=== PATIENT | male | born 1950 | race Caucasian/White ===

== ENCOUNTER → 2023-09-04 06:57 | Outpatient (REF) | payer MEDICARE, OTHER, SELFPAY | LOC: HWRAD 06:57 | PROVIDERS: ATTENDING PHYSICIAN Family Medicine | DX: R05.3 Chronic cough (principal) | CPT/HCPCS: 71046 ==

== ENCOUNTER 2024-11-06 19:49 | Emergency (ER) | payer MEDICARE, OTHER, SELFPAY ==
[2024-11-06 19:50] VITALS: BMI 26.1
[2024-11-06 19:54] VITALS: BP 177/93
[2024-11-06 20:16] LABS: Hematocrit 32.4 % (39.0-52.0); Hemoglobin 10.0 g/dL (13.0-18.0); Mean Corp Hgb Conc. 30.9 g/dL (33.0-37.0); Mean Corpuscular Volume 77.9 fL (80.0-94.0); Nucleated Red Blood Cells % 0 % (-); Platelet Count 685 10^3/uL (130-400); Red Cell Dist. Width 17.6 % (11.5-14.5)
[2024-11-06 20:31] LABS: ALT (SGPT) 20 U/L (0-50); AST (SGOT) 21 U/L (17-59); Albumin 4.0 g/dl (3.5-5.0); Alkaline Phosphatase 51 U/L (38-126); Blood Urea Nitrogen 19 mg/dl (9-20); Calcium 9.5 mg/dl (8.4-10.2); Carbon Dioxide 26 mmol/L (22-30); Chloride 102 mmol/L (98-107); Glucose 109 mg/dl (70-99); Lipase 117 U/L (23-300); Potassium 4.6 mmol/L (3.5-5.1); Sodium 134 mmol/L (135-145); Total Protein 7.1 g/dl (6.3-8.2); eGFR > 60.00
[2024-11-06 22:14] VITALS: BP 148/92
[2024-11-06 23:00] VITALS: BP 149/89
[2024-11-07] VITALS: BP 156/85
[2024-11-07 00:12] LABS: COVID-19 Antigen Negative (Negative)
[2024-11-07 01:00] VITALS: BP 151/89
--- NOTE | 2024-11-07 01:17 | ED.GENMED ---
History of Present Illness
General
Chief Complaint: Dehydration Symptoms
Source: patient and spouse
Exam Limitations: none
Time Seen by Provider: 11/06/24 22:08
Nursing documentation reviewed up to this point in time: agreed with
History of Present Illness
History of Present Illness:
Note:
CHIEF COMPLAINT(S)
Dehydration, history of diverticulitis, and recent infection.
HISTORY OF PRESENT ILLNESS
The patient is a 74-year-old male with a past medical history of diverticulitis, who presents with symptoms of dehydration and a recent history of infections. Approximately three weeks ago, the patient experienced a diverticulitis attack, the first
in 15 years, and was treated with a regimen of antibiotics. Subsequently, the patient developed a chest and sinus infection, for which another course of antibiotics was prescribed, despite the condition being more viral than bacterial. The patient
reported feeling feverish and achy but did not record an elevated temperature. He described feeling unmotivated and highly stressed over the past three weeks and has not been consuming water at his usual rate. The patient visited an urgent care
center where they performed a chest x-ray and cardiac examination, which were both unremarkable. The patient was informed that he was dehydrated but no blood work was performed at that time. The patient also noted his blood pressure was measured at
164, higher than his usual range of 135 to 138 over 80 to 85. He had his first substantial meal in a week and a half the night before and noticed feeling somewhat better following this. He reports his usual bowel habits have changed, with some
difficulty passing stool, although he does not describe significant pain. The patient manages bowel regularity with psyllium (Metamucil) but is currently taking it at a reduced dose. Recent laboratory results will be reviewed, and hydration therapy
will be initiated. The patient denies any recent darkening of urine and fever after taking home temperature measurements.
SOCIAL DETERMINANTS AFFECTING HEALTH
The patient has been experiencing significant stress over the past three weeks, which may be contributing to his current health issues.
PHYSICAL EXAM
General: Alert, no acute distress.
Skin: Warm, dry.
Head: Normocephalic, atraumatic.
Neck: Supple, trachea midline.
Eyes, Ears, Nose, Mouth, and Throat: Oral mucosa moist.
Cardiovascular: Normal peripheral perfusion, no edema.
Respiratory: Respirations are non-labored.
Gastrointestinal: Abdomen nondistended.
Back: Normal range of motion, normal alignment.
Musculoskeletal: Normal range of motion, normal strength.
Neurological: Alert and oriented to person, place, time, and situation, no focal neurological deficit observed.
Psychiatric: Cooperative, appropriate mood & affect.
PLAN
1. Initiate intravenous hydration to address dehydration.
2. Review recent laboratory results to guide further management.
3. Obtain a urine sample for further analysis.
DIFFERENTIAL DIAGNOSIS
The Differential Diagnosis includes, in no particular order and is not limited to:
1. Recurrent diverticulitis
2. Upper respiratory tract infection
3. Viral infection
4. Bacterial sinusitis
5. Dehydration
6. Electrolyte imbalance
7. Stress-induced physiological changes
8. Gastrointestinal malabsorption or upset
9. Medication side effects
10. Hypertension
Disposition:
SUMMARY OF ENCOUNTER
The patient is a 74-year-old male who presented with concerns of dehydration and symptoms indicative of an upper respiratory infection (URI). After consuming three cans of indra deyanira during his emergency department visit, the patient reported
feeling significantly better. Laboratory tests reviewed did not confirm dehydration but did reveal slight anemia, with no baseline labs for comparison. The patient mentioned a history of iron-deficiency anemia managed with iron supplements, which he
discontinued fearing iron accumulation. He reported recent steroid use, accounting for a white blood cell count of 16,000. The patient does not currently have a family physician and expressed plans to seek a new primary physician. He was provided
with the pulse line for assistance and advised to follow up with hematology. Despite symptoms of a URI, the patient noted improvement after recent antibiotic and steroid treatment. He also began taking Mucinex D today.
DISPOSITION
Discharge in improved condition with fatigue.
ASSESSMENT
The patient exhibits symptoms of a possible upper respiratory infection (URI), slight anemia, with a history suggesting iron-deficiency anemia, recent steroid use accounting for leukocytosis, and dehydration concerns now resolved.
PLAN
1. Follow up with hematology for further evaluation of anemia.
2. Provide patient with contact information for the pulse line to assist in finding a new primary care physician.
3. Recommend continued use of Mucinex D for URI symptoms as needed.
INDEPENDENT REVIEW OF LABS AND INTERPRETATION OF TESTS
My independent review of lab results indicates slight anemia and leukocytosis with a white blood cell count of 16,000.
PATIENT EDUCATION AND COUNSELING
The patient was informed about the findings of slight anemia, advised on the importance of following up with hematology for further evaluation, and reassured about the lack of current dehydration. Additionally, he was provided guidance on continuing
Mucinex D for his URI symptoms.
FOLLOW-UP INSTRUCTIONS
The patient was instructed to call the pulse line to establish care with a new primary care physician and to schedule a follow-up appointment with hematology.
MEDICATION RECONCILIATION
The patient began using Mucinex D today for symptoms, in addition to recent antibiotic and steroid treatments.
MEDICAL DECISION MAKING
-Complexity of Data Reviewed: Chronic conditions affecting care include a history of iron-deficiency anemia. Differential diagnosis includes:
1. Viral infection
2. Bacterial sinusitis
3. Dehydration
4. Upper respiratory tract infection
5. Recurrent diverticulitis
6. Electrolyte imbalance
7. Stress-induced physiological changes
8. Gastrointestinal malabsorption or upset
9. Medication side effects
10. Hypertension
-Data:
Category 1
Clinical information was obtained from the patients history and discussion.
-Risk:
Care significantly affected by Social Determinants of Health due to the lack of a current family physician, highlighting the need for continuity of care.
DIAGNOSIS
1. Upper respiratory infection (J06.9)
2. Iron-deficiency anemia (D50.9)
Phy Exam
Physical Exam
Physical Exam:
.
Course
Orders/Labs/Results
Orders:
Orders
11/06/24 20:02
Complete Blood Count/With Diff Urgent
Comprehensive Metabolic Panel Urgent
Ferritin Urgent
Comment: ADDED
Iron Urgent
Comment: ADDED
Lipase Urgent
Total Iron Binding Urgent
Comment: ADDED
11/06/24 23:12
CR Chest - 2 Views Urgent
Comment:
Reason For Exam: fevr
11/06/24 23:33
Influenza A+B Rapid Molecular Urgent
SEBAS Source: Nasal Swab
Specimen Description:
11/06/24 23:34
COVID-19 Antigen Urgent
Source: Nasal Swab
11/07/24 01:16
Add On- LAB Urgent
Tests Added?: TIBC, Ferritin, Iron
Abnormal Lab Results
11/06/24
20:02
WBC 16.2 H 10^3/uL
(4.8-10.8)
RBC 4.16 L 10^6/uL
(4.70-6.10)
Hgb 10.0 L g/dL
(13.0-18.0)
Hct 32.4 L %
(39.0-52.0)
MCV 77.9 L fL
(80.0-94.0)
MCH 24.0 L pg
(27.0-31.0)
MCHC 30.9 L g/dL
(33.0-37.0)
RDW 17.6 H %
(11.5-14.5)
Plt Count 685 H 10^3/uL
(130-400)
Abs Immat Gran (auto) 0.1 H 10^3/uL
(0-0.05)
Absolute Neuts (auto) 12.4 H 10^3/uL
(1.4-6.5)
Absolute Monos (auto) 1.4 H 10^3/uL
(0.1-0.6)
Neutrophils % 76.7 H %
(42.2-75.2)
Lymphocytes % 13.3 L %
(20.5-51.1)
Sodium 134 L mmol/L
(135-145)
Glucose 109 H mg/dl
(70-99)
Iron 25 L ug/dl
(49-181)
% Saturation 6 L %
(20-50)
Ferritin 14.9 L ng/ml
(17.9-464.0)
11/06/24 20:02
11/06/24 20:02
Vital Signs
Initial and Last Documented VS:
Initial Vital Signs
Temp Pulse Resp BP Pulse Ox
98.6 F 103 18 177/93 99
11/06/24 19:54 11/06/24 19:54 11/06/24 19:54 11/06/24 19:54 11/06/24 19:54
Last Documented Vital Signs
Temp Pulse Resp BP Pulse Ox
98.6 F 91 16 151/89 96
11/06/24 19:54 11/06/24 23:15 11/06/24 23:15 11/07/24 01:00 11/07/24 01:21
*Pulse Oximetry
SaO2: 96
Oxygen Mode of Delivery: Room air
Patient hypoxic: no
*Critical Care Note
Total Time (30-74mins, 75-104mins- exclusive of procedures): Not Applicable
ED Attending Note
-
Portions of this chart may have been created with voice recognition software.� Occasional wrong word or��sound alike� substitutions may have occurred due to the inherent limitations of voice recognition software.
Discharge Plan
Departure
Patient Disposition: Home (Routine Discharge)
Date of Disposition: 11/07/24
Time of Disposition: 01:17
Patient with high blood pressure during this ER visit?: Yes
Condition: Good
Discharge Problem:
Fatigue, Anemia, URI (upper respiratory infection)
Instructions: Fatigue (DC), Low iron in adults (DC), Upper Respiratory Infection - Adult
Referrals:
Esperanza Hunter MD [Active, Hematology / Oncology]
Jose Juan Sheehan DO [Family Provider, Family Practice]
Activity Restrictions/Additional Instructions:
Thank You for choosing [facility].
It was a pleasure meeting you and taking part in your care. We hope for your continued healing and wellness.
Please read discharge instructions in their entirety. However, they are for general education and may not describe your exact diagnosis at discharge. Information on your ER visit and medical conditions were discussed with you along with appropriate
follow up information...
If indicated, please take your medications as instructed and indicated on discharge paperwork.
Please schedule a follow up appointment as directed. Call to schedule an appointment
Please return to the emergency department with ANY change in, persisting, or worsening of symptoms. If any of your symptoms do not improve, or persist, or become more severe within 6-12 hours, please return to the emergency department for further
care.
Please return to the emergency department if you develop a headache, neck pain/stiffness, fever greater than 100.4F, chest pain, shortness of breath, persistent nausea, vomiting, slurred speech, difficulty walking, numbness/tingling, weakness, signs
of infection or any other symptoms that are worrisome to you.
If you have any questions or concerns please do not hesitate to call the Hospital at or E-mail me directly at [email or web address]
Interventions
Interventions:
*Risk Screen - Suicide Last Done: 11/06/24 19:57
*General Assessment Last Done: 11/06/24 19:57
*Neglect/Abuse Screening Last Done: 11/06/24 19:57
*ED- Fall Risk Assessment Last Done: 11/06/24 22:08
*Nursing Disposition Last Done: 11/07/24 01:30
ED- Cardiac Assessment Last Done: 11/06/24 22:08
ED- Neurological Assessment Last Done: 11/06/24 22:08
ED- Pulmonary Assessment Last Done: 11/06/24 22:08
Discharge Date and Time
Discharge Date/Time: 11/07/24 01:30
Print Language: SINHALA
[2024-11-07 01:40] LABS: Iron 25 ug/dl (49-181)
[2024-11-07 01:49] LABS: Total Iron Binding Capacity 378 ug/dl (261-462)
[2024-11-07 02:17] LABS: Ferritin 14.9 ng/ml (17.9-464.0)
== END 2024-11-07 01:30 | disposition home or self-care (01) ==
LOC: EMR 19:49
PROVIDERS: Emergency Medicine; EMERGENCY PHYSICIAN Student in an Organized Health Care Education/Training Program; FAMILY PHYSICIAN Family Medicine
DX: J06.9 Acute upper respiratory infection, unspecified (principal); D50.9 Iron deficiency anemia, unspecified; R53.83 Other fatigue; Z11.52 Encounter for screening for COVID-19
CPT/HCPCS: 99284; 71046; 80053; 82728; 83540; 83550; 83690; 85025; 87502; 87811